=== PATIENT | female | born 1980 | race Caucasian/White ===

== ENCOUNTER 2016-08-17 12:06 | Emergency (ER) | payer OTHER ==
[~2016-08-17] VITALS: Ht 162.6 cm; Wt 55.5 kg
[2016-08-17 12:08] VITALS: BP 160/103; PULSE 77; RESP 16; TEMP 98.5; O2SAT 96
--- NOTE | 2016-08-17 12:19 | PD ---
HPI Chief Complaint: Laceration/Skin Injury Time Seen by Provider: 12:15 Travel History International Travel<30 days: No Contact w/Intl Traveler<30days: No Traveled to known affect area: No History of Present Illness HPI 35-year-old left-hand dominant female presents to the ED for evaluation of laceration of the left hand. Sustained while opening a can of olives just before presentation. The patient's unsure of the date of her last tetanus immunizations. She denies chronic health problems and takes no daily medications. PFSH Past Medical History ?: Not LMP: 08/05/2016 Social History Tobacco Use: No Allergies-Medications (Allergen,Severity, Reaction): Coded Allergies: No Known Allergies (Unverified , 08/17/16) Reported Meds & Prescriptions Reported Meds & Active Scripts Active Ibuprofen 600 Mg Tab 600 Mg PO Q8H Review of Systems Except as stated in HPI: all other systems reviewed are Neg Physical Exam Narrative GENERAL: Well-nourished, well-developed white female in no acute distress.. SKIN: Focused skin assessment warm/dry. 4 cm laceration on the dorsal aspect of the left hand, extends into the interdigital space. HEAD: Normocephalic. EYES: No scleral icterus. No injection or drainage. NECK: Supple, trachea midline. No JVD or lymphadenopathy. CARDIOVASCULAR: Regular rate and rhythm without murmurs, gallops, or rubs. RESPIRATORY: Breath sounds equal bilaterally. No accessory muscle use. GASTROINTESTINAL: Abdomen soft, non-tender, nondistended. MUSCULOSKELETAL: No cyanosis, or edema. FOCUSED LEFT UPPER EXTREMITY EXAM: 2+ radial pulse. Patient is able to strongly flex and extend the fingers of the hand. Strong finger-thumb opposition on each digit. Neurovascularly intact. BACK: Nontender without obvious deformity. No CVA tenderness. Data Data Last Documented VS Vital Signs Date Time Temp Pulse Resp B/P Pulse Ox O2 Delivery O2 Flow Rate FiO2 08/17/16 12:08 98.5 77 16 160/103 96 Orders Lidocaine 1% Inj (Xylocaine 1% Inj) (08/17/16 12:30) Tetanus/Diphtheria Tox Adult (Tetanus/Di (08/17/16 12:30) Lidocaine Pf 1% Inj (Xylocaine-Mpf 1% In (08/17/16 12:20) Splint Or Brace Apply/Monitor (08/17/16 13:20) Mandatory Outpatient Referral (08/17/16 13:21) [facility] Medical Decision Making Medical Screen Exam Complete: Yes Emergency Medical Condition: Yes Differential Diagnosis Laceration versus tendinous injury versus muscle tear versus need for tetanus immunization versus other Narrative Course 35-year-old left-hand dominant female presents to the ED for evaluation of laceration of the left hand. Sustained while opening a can of olives just before presentation. The patient's unsure of the date of her last tetanus immunizations. She denies chronic health problems and takes no daily medications. Vitals reviewed. 2+ radial pulse on the left. The patient retains full, active, painless ROM of the thumb and the digits of the left hand. Strong finger to thumb opposition with each digit. Sensation intact to light touch distally. Cap refill less than 2 seconds. Laceration repair was performed. Please see my procedure note for details. The patient was provided a prescription for 600 mg ibuprofen 3 times a day. Mandatory outpatient consult was placed with Dr. Caban. Patient is instructed to keep the thumb spica clean and dry, call Dr. Caban's office tomorrow for follow-up. She indicated understanding of instructions and is agreeable to the care plan. The patient is patient stable and discharged home. Procedures Procedure Narrative LACERATION LOCATION: Dorsal aspect of the left hand, continuing into the interdigital space. LENGTH: 5 cm NUMBER OF STITCHES/MAGED: 3 deep, 8 superficial REPAIR: The area of the laceration was prepped with Betadine and sterilely draped. The laceration was infiltrated with 1% lidocaine. The wound was copiously irrigated and explored without evidence of foreign body, tendon injury or neurovascular injury. There is partial transection of the first interosseous muscle which was repaired with 3-0 Vicryl. The wound was closed using 4-0 Prolene. This was a 2 layer repair. A sterile dressing and thumb spica was applied. The patient was advised to keep the dressing clean and dry. Patient tolerated the procedure well. Diagnosis Primary Impression: Laceration of left hand Qualified Code: S61.412A - Laceration of left hand without foreign body, initial encounter Referrals: Mayra Caban MD Patient Instructions: Care For Your Stitches (ED), General Instructions, Laceration (ED) Additional Instructions: Rest, elevate the extremity. 600 mg ibuprofen up to 3 times a day as needed for pain. Keep the splint dry. Do not remove the splint until cleared by the hand surgeon. Follow up with Dr. Caban's office tomorrow for an appointment this week. Return to the ED for any urgent or emergent medical condition. Med/Other Pt SpecificInfo: Prescription(s) given Scripts Ibuprofen 600 Mg Qts427 Mg PO Q8H #21 TAB Ref 0 Prov:aYya Vicente MD 08/17/16 Disposition: 01 DISCHARGE HOME Condition: Stable Lidya Guajardo Aug 17, 2016 12:19 Liday Guajardo Aug 17, 2016 12:19
[2016-08-17] MEDS: LIDOCAINE HCL 1% PF 30 ML VIAL ONE ×2 (12:20→12:26)
[2016-08-17] MEDS ORDERED: LIDOCAINE HCL 1% 30 ML VIAL INFIL ONE (12:30)
[2016-08-17] MEDS ORDERED: TETANUS/DIPHTHERIA TOXOID ADULT 0.5 ML VIAL IM ONE (12:30)
[2016-08-17] MEDS ORDERED: IBUP-232 PO (13:29)
== END 2016-08-17 13:58 | disposition home or self-care (01) ==
LOC: PHEFT 12:06
DX: S61.412A Laceration without foreign body of left hand, initial encounter (principal); Z23 Encounter for immunization; W26.8XXA Contact with other sharp object(s), not elsewhere classified, initial encounter; Y93.9 Activity, unspecified; Y92.9 Unspecified place or not applicable; Y99.9 Unspecified external cause status
CPT/HCPCS: 12042; 90471; 90714; 99283; L3808